=== PATIENT | male | born 1985 | race Caucasian/White ===

== ENCOUNTER 2021-05-14 17:53 | Emergency (ER) | payer OTHER ==
[~2021-05-14] VITALS: Ht 170.2 cm; Wt 68.0 kg
--- NOTE | 2021-05-14 17:54 | NUR ---
Patient BIBA ALS, transferred to bed 7. RN evaluating the patient at bedside.
[2021-05-14 18:02] VITALS: BP 153/99
--- NOTE | 2021-05-14 18:11 | NUR ---
36 Y/O M BIBA FROM HOME, PT PRESENTS POST SEIZURE TONIC CLONIC WITNESSED FOR 5 MINUTES, AT SCENE [facility] DENIES ANY INJURIES TO PT. PT IS UNABLE TO RECALL WHAT HAPPENED. PT STATES LAST ALCOHOL USE WAS YESTERDAY 3 BEERS. PT STATES HE DRINKS 3 BEERS WITH LIQUOR EVERY DAY. C/O DIZZINESS AND N&V WITH 50ML OUTPUT OF EMESIS, NO BLOOD. PERRLA 4MM SLUGGISH RESPONSE, DENIES BLURRY VISION OR DOUBLE VISION. SKIN IS PINK/WARM/DRY; AAOX4 WITH EVEN AND STEADY GAIT; LUNGS CLEAR BL; HR EVEN AND REGULAR; PT DENIES ANY FEVER, CP, SOB, OR COUGH AT THIS TIME; PATIENT STATES PAIN OF 0/10 AT THIS TIME; VSS; PATIENT POSITIONED FOR COMFORT; HOB ELEVATED; BEDRAILS UP X2; BED DOWN. ER MD MADE AWARE OF PT STATUS. PMH: ONE SEIZURE BEFORE, NO DIAGNOSIS MED: ZOFRAN 4MG IVP [facility]
[2021-05-14] MEDS ORDERED: LIB25 PO (18:30)
[2021-05-14 18:44] VITALS: BP 153/99
--- NOTE | 2021-05-14 18:44 | NUR ---
Patient discharged with v/s stable. Written and verbal after care instructions given and explained. Patient alert, oriented and verbalized understanding of instructions. Ambulatory with to car. All questions addressed prior to discharge. ID band removed. Patient advised to follow up with PMD. Rx of CHLORDIAZEPOXIDE given. Patient educated on indication of medication including possible reaction and side effects. Opportunity to ask questions provided and answered.
== END 2021-05-14 18:44 | disposition home or self-care (01) ==
LOC: MED 17:53
DX: R56.9 Unspecified convulsions (principal); F10.20 Alcohol dependence, uncomplicated; F12.90 Cannabis use, unspecified, uncomplicated
CPT/HCPCS: 99283